=== PATIENT | male | born 1950 | race Caucasian/White ===

== ENCOUNTER 2018-12-08 09:48 | Day surgery (SDC) | payer MEDICARE ==
[2018-12-07 13:24] LABS: BASOPHILS # (AUTO) 0.1 X10'3 (0-0.2); BASOPHILS % (AUTO) 1.4 % (0-1); EOSINOPHILS # (AUTO) 0.5 X10'3 (0-0.9); EOSINOPHILS % (AUTO) 7.3 % (0-6); HEMATOCRIT 39.1 % (42.0-52.0); HEMOGLOBIN 13.1 g/dl (14.0-17.9); LYMPHOCYTES # (AUTO) 1.2 X10'3 (1.1-4.8); LYMPHOCYTES % (AUTO) 16.8 % (21-51); MEAN CORPUSCULAR HEMOGLOBIN 28.5 PG (27.0-31.0); MEAN CORPUSCULAR HGB CONC 33.4 g/dL (33.0-36.5); MEAN CORPUSCULAR VOLUME 85.4 FL (78-98); MEAN PLATELET VOLUME 7.8 FL (7.4-10.4); MONOCYTES # (AUTO) 0.5 X10'3 (0-0.9); MONOCYTES % (AUTO) 7.6 % (2-12); NEUTROPHILS # (AUTO) 4.6 X10'3 (1.8-7.7); NEUTROPHILS % (AUTO) 66.9 % (42-75); PLATELET COUNT 248 X10'3 (140-440); RED BLOOD COUNT 4.58 X10'6 (4.70-6.10); RED CELL DISTRIBUTION WIDTH 12.8 % (11.5-14.5); WHITE BLOOD COUNT 6.9 X10'3 (4.5-11.0)
[2018-12-07 13:38] LABS: ALBUMIN 3.9 G/DL (3.4-5.0); ANION GAP 5 (8-16); BLOOD UREA NITROGEN 21 MG/DL (7-18); BUN/CREATININE RATIO 22.1 (5.4-32.0); CALCIUM 9.1 MG/DL (8.5-10.1); CHLORIDE 100 MMOL/L (99-107); CREATININE 0.95 MG/DL (0.60-1.10); GLUCOSE 107 MG/DL (70-104); POTASSIUM 3.9 MMOL/L (3.5-5.1); SODIUM 135 MMOL/L (135-145); TOTAL CARBON DIOXIDE 29.7 MMOL/L (24-32); eGFR 79 ML/MIN
[2018-12-07 13:45] LABS: PARTIAL THROMBOPLASTIN TIME 30 SECONDS (22-32)
[~2018-12-08] VITALS: Ht 182.9 cm; Wt 98.2 kg
[2018-12-08] VITALS (9 sets, daily range): BP systolic 96–137; BP diastolic 61–80
[~2018-12-08 09:48] MED LIST: ASPI-1264 PO; CLON-528 PO; FISH12002 PO; HYDR1TAB PO; LISI-230 PO; METO25TA6 PO; ROSU10TA2 PO
[2018-12-08] MEDS ORDERED: normal saline 1,000 ML IV SCH ×2 (10:10→15:20)
[2018-12-08] MEDS ORDERED: diphenhydrAMINE 25mg capsule PO PRN (10:10)
[2018-12-08] MEDS ORDERED: LORazepam 0.5 MG tablet PO PRN (10:10)
[2018-12-08] MEDS ORDERED: HYDR-4353 PO (10:50)
[2018-12-08] MEDS ORDERED: BENADRYL (10:50)
[2018-12-08] MEDS ORDERED: ROSU40TA PO (10:50)
[2018-12-08] MEDS ORDERED: heparin 1,000 UNITS/NS 500ml 500 ML ONE (13:11)
[2018-12-08] MEDS ORDERED: iohexol 350 MG/ML 50ML vial IV ONE (13:11)
[2018-12-08] MEDS ORDERED: iohexol 350 MG/1 ML 200ml bottle ONE (13:11)
[2018-12-08] MEDS ORDERED: LIDOcaine 1% (10mg/ml)w/preservative injection 20ml MDV ONE (13:11)
[2018-12-08] MEDS ORDERED: heparin 1,000unit/ml 10ml vial 10 ML ONE (13:11)
[2018-12-08] MEDS ORDERED: nitroGLYCERIN-Tridil 50MG/D5W 250 ML IV ONE (13:11)
[2018-12-08] MEDS ORDERED: midazolam 2 mg/2 ml injection ONE (13:26)
[2018-12-08] MEDS ORDERED: fentaNYL/PF 50MCG/1 ML 2ML syringe ONE (13:26)
[2018-12-08] MEDS ORDERED: aspirin 81mg tab.chew PO ONE (15:20)
[2018-12-08 15:21] LABS: ISTAT HGB ART 11.2 g/dl (14.0-18.0); ISTAT Hct ART 33 %PCV (42-52); ISTAT O2 SATURATION ARTERIAL 99 % (95-98); ISTAT SOURCE ART
[2018-12-08 15:21] LABS: ISTAT Hct MIX 33 %PCV (42-52); ISTAT O2 SATURATION MIX VENOUS 71 % (60-80); ISTAT SOURCE MIX
[2018-12-08] MEDS ORDERED: HYDROcodone/acetaminophen 10/325mg tab PO PRN (17:35)
== END 2018-12-08 19:25 | disposition home or self-care (01) ==
LOC: SSTAY O 09:48
PROVIDERS: ATTEND Internal Medicine Cardiovascular Disease
DX: I25.10 Atherosclerotic heart disease of native coronary artery without angina pectoris (principal); I25.82 Chronic total occlusion of coronary artery; I10 Essential (primary) hypertension; E78.5 Hyperlipidemia, unspecified; Z79.899 Other long term (current) drug therapy; Z79.82 Long term (current) use of aspirin; Z98.890 Other specified postprocedural states; Z95.1 Presence of aortocoronary bypass graft; R06.02 Shortness of breath; R07.9 Chest pain, unspecified
CPT/HCPCS: 36415; 80048; 82803; 85014; 85025; 85610; 85730; 93005; 93461; 99152; 99153; A6257; C1760; C1769; J1644; J2001; J2250; J3010; J7030; Q0163; Q9967; 93460; J3490

== ENCOUNTER 2019-11-30 08:45 | Day surgery (SDC) | payer MEDICARE ==
[2019-11-29 16:02] LABS: BASOPHILS # (AUTO) 0.1 X10'3 (0-0.2); EOSINOPHILS # (AUTO) 0.5 X10'3 (0-0.9); EOSINOPHILS % (AUTO) 7.7 % (0-6); HEMOGLOBIN 13.4 g/dl (14.0-17.9); LYMPHOCYTES # (AUTO) 1.5 X10'3 (1.1-4.8); LYMPHOCYTES % (AUTO) 24.7 % (21-51); MEAN CORPUSCULAR HEMOGLOBIN 29.2 PG (27.0-31.0); MEAN CORPUSCULAR HGB CONC 33.5 g/dL (33.0-36.5); MEAN CORPUSCULAR VOLUME 87.2 FL (78-98); MONOCYTES # (AUTO) 0.5 X10'3 (0-0.9); MONOCYTES % (AUTO) 9.1 % (2-12); NEUTROPHILS # (AUTO) 3.5 X10'3 (1.8-7.7); NEUTROPHILS % (AUTO) 57.5 % (42-75); PLATELET COUNT 208 X10'3 (140-440); RED BLOOD COUNT 4.58 X10'6 (4.70-6.10); RED CELL DISTRIBUTION WIDTH 13.4 % (11.5-14.5)
[2019-11-29 16:11] LABS: ALBUMIN 3.8 G/DL (3.4-5.0); ANION GAP 6 (8-16); BLOOD UREA NITROGEN 22 MG/DL (7-18); BUN/CREATININE RATIO 23.7 (5.4-32.0); CALCIUM 9.7 MG/DL (8.5-10.1); CHLORIDE 99 MMOL/L (99-107); CREATININE 0.93 MG/DL (0.60-1.10); GLUCOSE 103 MG/DL (70-104); POTASSIUM 3.6 MMOL/L (3.5-5.1); SODIUM 135 MMOL/L (135-145); TOTAL CARBON DIOXIDE 30.5 MMOL/L (24-32); eGFR 80 ML/MIN
[2019-11-29 16:20] LABS: PARTIAL THROMBOPLASTIN TIME 29 SECONDS (22-32)
[2019-11-30] VITALS (14 sets, daily range): BP systolic 107–155; BP diastolic 55–97
[~2019-11-30] VITALS: Ht 182.9 cm; Wt 101.3 kg
[~2019-11-30 08:45] MED LIST changes: +BENADRYL; -CLON-528 PO; -FISH12002 PO; +HYDR-4353 PO; -HYDR1TAB PO; -ROSU10TA2 PO; +ROSU40TA PO
[2019-11-30] MEDS ORDERED: normal saline 1,000 ML IV SCH ×2 (09:05→09:30)
[2019-11-30] MEDS ORDERED: OMEG1CAP2 PO (09:15)
[2019-11-30] MEDS ORDERED: diphenhydrAMINE 25mg capsule PO PRN (09:30)
[2019-11-30] MEDS ORDERED: LORazepam 0.5 MG tablet PO PRN (09:30)
[2019-11-30] MEDS ORDERED: nitroGLYCERIN-Tridil 50MG/D5W 250 ML IV ONE (11:02)
[2019-11-30] MEDS ORDERED: iohexol 350MG/ML 100ml bottle IV ONE (11:03)
[2019-11-30] MEDS ORDERED: midazolam 2 mg/2 ml injection ONE (11:03)
[2019-11-30] MEDS ORDERED: iohexol 350 MG/ML 50ML vial IV ONE (11:03)
[2019-11-30] MEDS ORDERED: LIDOcaine 1% (10mg/ml)w/preservative injection 20ml MDV ONE ×2 (11:03→15:08)
[2019-11-30] MEDS ORDERED: heparin 1,000unit/ml 10ml vial 10 ML ONE (11:03)
[2019-11-30] MEDS ORDERED: fentaNYL/PF 50MCG/1 ML 2ML syringe ONE (11:03)
[2019-11-30] MEDS ORDERED: iohexol 350 MG/1 ML 200ml bottle ONE (11:50)
[2019-11-30] MEDS ORDERED: heparin 25,000 UNIT/250ml bag 250 ML IV ONE (12:14)
[2019-11-30] MEDS ORDERED: clopidogrel 300mg tablet ONE (12:56)
[2019-11-30] MEDS ORDERED: HYDROcodone/acetaminophen 10/325mg tab PO PRN ×3 (13:45→15:50)
[2019-11-30] MEDS ORDERED: HYDROcodone/acetaminophen 5mg/325mg tablet PO PRN (13:45)
[2019-11-30] MEDS ORDERED: acetaminophen 325mg tablet PO PRN ×2 (13:45→15:50)
[2019-11-30] MEDS ORDERED: aspirin 325mg tablet PO ONE (15:45)
[2019-11-30] MEDS ORDERED: OXAZEpam 15mg capsule PO PRN (15:50)
[2019-11-30] MEDS ORDERED: magnesium hydroxide 30ml (MOM) UD suspension PO PRN (15:50)
[2019-11-30] MEDS ORDERED: cyclobenzaprine 10mg tablet PO PRN (15:50)
[2019-11-30] MEDS: morphine 2 MG/ML inj. syringe IV PRN ×2 (15:52→17:35)
[2019-11-30] MEDS ORDERED: docusate sod 100mg capsule PO SCH (20:00)
[2019-12-01] MEDS ORDERED: clopidogrel 75mg tablet PO SCH (08:00)
[2019-12-01] MEDS ORDERED: aspirin 325mg tablet PO SCH (08:30)
== END 2019-11-30 20:10 | disposition home or self-care (01) ==
LOC: SSTAY O 08:45
PROVIDERS: ATTEND Internal Medicine Cardiovascular Disease
DX: R94.39 Abnormal result of other cardiovascular function study (principal); I25.119 Atherosclerotic heart disease of native coronary artery with unspecified angina pectoris; I25.82 Chronic total occlusion of coronary artery; I35.0 Nonrheumatic aortic (valve) stenosis; I10 Essential (primary) hypertension; E78.5 Hyperlipidemia, unspecified; Z95.1 Presence of aortocoronary bypass graft; Z79.899 Other long term (current) drug therapy; Z79.82 Long term (current) use of aspirin; Z98.890 Other specified postprocedural states; Z79.01 Long term (current) use of anticoagulants; Z87.891 Personal history of nicotine dependence; Z82.49 Family history of ischemic heart disease and other diseases of the circulatory system
CPT/HCPCS: 36415; 80048; 85025; 85347; 85610; 85730; 93005; 93459; 99152; 99153; C1725; C1769; C1874; C1892; C9600; J1644; J2001; J2250; J2270; J3010; J7030; J7040; Q0163; Q9967; 76937; A4620; A5120; A6258; A6449; C1751; C1760; J3490

== ENCOUNTER 2020-04-20 17:54 | Emergency (ER) | payer MEDICARE ==
[~2020-04-20] VITALS: Ht 182.9 cm; Wt 100.8 kg
[~2020-04-20 17:54] MED LIST changes: -BENADRYL; +OMEG1CAP2 PO; -ROSU40TA PO
[2020-04-20] MEDS ORDERED: cyclobenzaprine 10mg tablet PO ONE (19:50)
[2020-04-20] MEDS ORDERED: acetaminophen 325mg tablet PO ONE (19:50)
[2020-04-20 20:38] LABS: BASOPHILS % (AUTO) 0.5 % (0-1); EOSINOPHILS # (AUTO) 0.2 X10'3 (0-0.9); EOSINOPHILS % (AUTO) 2.5 % (0-6); HEMATOCRIT 38.2 % (42.0-52.0); HEMOGLOBIN 13.2 g/dl (14.0-17.9); LYMPHOCYTES # (AUTO) 1.2 X10'3 (1.1-4.8); LYMPHOCYTES % (AUTO) 17.1 % (21-51); MEAN CORPUSCULAR HEMOGLOBIN 29.6 PG (27.0-31.0); MEAN CORPUSCULAR HGB CONC 34.6 g/dL (33.0-36.5); MEAN CORPUSCULAR VOLUME 85.6 FL (78-98); MEAN PLATELET VOLUME 7.5 FL (7.4-10.4); MONOCYTES # (AUTO) 0.7 X10'3 (0-0.9); MONOCYTES % (AUTO) 9.3 % (2-12); NEUTROPHILS # (AUTO) 4.9 X10'3 (1.8-7.7); NEUTROPHILS % (AUTO) 70.6 % (42-75); PLATELET COUNT 212 X10'3 (140-440); RED BLOOD COUNT 4.46 X10'6 (4.70-6.10); RED CELL DISTRIBUTION WIDTH 13.1 % (11.5-14.5)
[2020-04-20 20:51] LABS: ALANINE AMINOTRANSFERASE 33 U/L (12-78); ALBUMIN 3.8 G/DL (3.4-5.0); ALBUMIN/GLOBULIN RATIO 1.2 (1.1-1.5); ALKALINE PHOSPHATASE 48 IU/L (46-116); ANION GAP 5 (8-16); ASPARTATE AMINO TRANSFERASE 22 U/L (10-37); BILIRUBIN,TOTAL 0.6 MG/DL (0.1-1.0); BLOOD UREA NITROGEN 13 MG/DL (7-18); BUN/CREATININE RATIO 15.9 (5.4-32.0); CALCIUM 9.4 MG/DL (8.5-10.1); CHLORIDE 88 MMOL/L (99-107); CREATININE 0.82 MG/DL (0.60-1.10); GLUCOSE 111 MG/DL (70-104); POTASSIUM 3.8 MMOL/L (3.5-5.1); SODIUM 123 MMOL/L (135-145); TOTAL CARBON DIOXIDE 30.5 MMOL/L (24-32); eGFR > 90 ML/MIN
[2020-04-20 20:55] LABS: MAGNESIUM 1.8 MG/DL (1.5-2.4); TROPONIN I < 0.04 NG/ML (0.0-0.05)
[2020-04-20] MEDS ORDERED: CYCL-1 PO (21:17)
[2020-04-20] MEDS ORDERED: ROPI0.5T4 PO (21:17)
[2020-04-20 21:30] LABS: CLARITY,URINE CLEAR (Clear); COLOR,URINE YELLOW (Yellow); GLUCOSE, URINE NEGATIVE (Neg); KETONES,URINE NEGATIVE (Neg); LEUKOCYTE ESTERASE ,URINE NEGATIVE (Neg); NITRITES, URINE NEGATIVE (Neg); OCCULT BLOOD,URINE NEGATIVE (Neg); PROTEIN,URINE NEGATIVE (Neg); UA COLLECTION TYPE CLN CATCH MIDSTREAM; UROBILINOGEN,URINE 0.2 E.U/dL (0.2-1.0)
[2020-04-20 21:37] VITALS: BP 143/72
== END 2020-04-20 21:39 | disposition home or self-care (01) ==
LOC: ER 17:55
DX: G25.81 Restless legs syndrome (principal); E87.1 Hypo-osmolality and hyponatremia; Z95.1 Presence of aortocoronary bypass graft; Z79.82 Long term (current) use of aspirin; Z79.899 Other long term (current) drug therapy
CPT/HCPCS: 36415; 80053; 81003; 83735; 84484; 85025; 93005; 99284

== ENCOUNTER 2020-10-31 05:59 | Day surgery (SDC) | payer MEDICARE ==
[2020-10-30 14:12] LABS: BASOPHILS % (AUTO) 0.7 % (0-1); EOSINOPHILS # (AUTO) 0.3 X10'3 (0-0.9); EOSINOPHILS % (AUTO) 3.8 % (0-6); HEMATOCRIT 39.9 % (42.0-52.0); HEMOGLOBIN 13.3 g/dl (14.0-17.9); LYMPHOCYTES # (AUTO) 1.3 X10'3 (1.1-4.8); LYMPHOCYTES % (AUTO) 19.4 % (21-51); MEAN CORPUSCULAR HEMOGLOBIN 28.9 PG (27.0-31.0); MEAN CORPUSCULAR HGB CONC 33.4 g/dL (33.0-36.5); MEAN CORPUSCULAR VOLUME 86.6 FL (78-98); MEAN PLATELET VOLUME 7.4 FL (7.4-10.4); MONOCYTES # (AUTO) 0.5 X10'3 (0-0.9); MONOCYTES % (AUTO) 7.4 % (2-12); NEUTROPHILS # (AUTO) 4.6 X10'3 (1.8-7.7); NEUTROPHILS % (AUTO) 68.7 % (42-75); PLATELET COUNT 217 X10'3 (140-440); RED BLOOD COUNT 4.61 X10'6 (4.70-6.10); RED CELL DISTRIBUTION WIDTH 12.8 % (11.5-14.5); WHITE BLOOD COUNT 6.7 X10'3 (4.5-11.0)
[2020-10-30 14:22] LABS: ALBUMIN 3.9 G/DL (3.4-5.0); ANION GAP 5 (8-16); BLOOD UREA NITROGEN 21 MG/DL (7-18); CALCIUM 9.3 MG/DL (8.5-10.1); CHLORIDE 99 MMOL/L (99-107); CREATININE 0.84 MG/DL (0.60-1.10); GLUCOSE 119 MG/DL (70-104); POTASSIUM 3.9 MMOL/L (3.5-5.1); SODIUM 135 MMOL/L (135-145); TOTAL CARBON DIOXIDE 30.8 MMOL/L (24-32); eGFR 90 ML/MIN
[2020-10-30 14:26] LABS: PARTIAL THROMBOPLASTIN TIME 30 SECONDS (22-32)
[~2020-10-31] VITALS: Ht 182.9 cm; Wt 101.8 kg
[2020-10-31] VITALS (12 sets, daily range): BP systolic 89–137; BP diastolic 57–77
[~2020-10-31 05:59] MED LIST changes: +CYCL-1 PO; +LOP25T PO; -METO25TA6 PO; +ROPI0.5T4 PO
[2020-10-31] MEDS ORDERED: LORazepam 0.5 MG tablet PO PRN (06:25)
[2020-10-31] MEDS ORDERED: LIDOcaine/PRILOcaine 5gm cream TP ONE (06:25)
[2020-10-31] MEDS ORDERED: diphenhydrAMINE 25mg capsule PO PRN (06:25)
[2020-10-31] MEDS ORDERED: CLOP75TA15 PO (06:38)
[2020-10-31] MEDS ORDERED: LISI-643 PO (06:38)
[2020-10-31] MEDS ORDERED: ISOS60TA71 PO (06:38)
[2020-10-31] MEDS ORDERED: METO25TA6 PO (06:38)
[2020-10-31] MEDS ORDERED: GABA600T13 PO (06:38)
[2020-10-31] MEDS ORDERED: nitroGLYCERIN-Tridil 50MG/D5W 250 ML IV ONE (07:20)
[2020-10-31] MEDS ORDERED: LIDOcaine 1% (10mg/ml)w/preservative injection 20ml MDV ONE (07:20)
[2020-10-31] MEDS ORDERED: iohexol 350 MG/ML 50ML vial IV ONE ×3 (07:20→08:54)
[2020-10-31] MEDS ORDERED: iohexol 350MG/ML 100ml bottle IV ONE (07:20)
[2020-10-31] MEDS ORDERED: fentaNYL/PF 50MCG/1 ML 2ML syringe ONE (07:20)
[2020-10-31] MEDS ORDERED: heparin 1,000unit/ml 10ml vial 10 ML ONE (07:20)
[2020-10-31] MEDS ORDERED: midazolam 1 mg/ML 2ml injection ONE (07:20)
[2020-10-31] MEDS: normal saline 1,000 ML IV SCH ×2 (07:26→10:42)
--- NOTE | 2020-10-31 10:00 | NUR ---
Pt in room, iv fluids infusing as ordered. Fem stop in place. Pt denies pain, denies cp. Will continue to monitor.
[2020-10-31] MEDS ORDERED: HYDROcodone/acetaminophen 10/325mg tab PO PRN (10:20)
[2020-10-31] MEDS ORDERED: normal saline 1000ml 1,000 ML IV SCH (10:20)
[2020-10-31] MEDS ORDERED: HYDROcodone/acetaminophen 5mg/325mg tablet PO PRN (10:20)
--- NOTE | 2020-10-31 11:00 | NUR ---
Pt ate 100% of breakfast tray. 350ml oral fluid intake. Pt denies pain at site. Pt denies cp. VS stable as charted will continue to monitor pt.
--- NOTE | 2020-10-31 12:30 | NUR ---
pt voided 600ml yellow, clear
--- NOTE | 2020-10-31 14:07 | NUR ---
Pt voided 550ml yellow clear
--- NOTE | 2020-10-31 15:30 | NUR ---
Femstop off, pt site stable, drsg CD&I, no s/s of bleeding
== END 2020-10-31 17:00 | disposition home or self-care (01) ==
LOC: SSTAY O 05:59
PROVIDERS: ATTEND Internal Medicine Cardiovascular Disease
DX: R94.39 Abnormal result of other cardiovascular function study (principal); R06.02 Shortness of breath; T82.857A Stenosis of other cardiac prosthetic devices, implants and grafts, initial encounter; I25.718 Atherosclerosis of autologous vein coronary artery bypass graft(s) with other forms of angina pectoris; I25.82 Chronic total occlusion of coronary artery; I35.0 Nonrheumatic aortic (valve) stenosis; I10 Essential (primary) hypertension; E78.5 Hyperlipidemia, unspecified; Z98.890 Other specified postprocedural states; Z87.891 Personal history of nicotine dependence; Z79.82 Long term (current) use of aspirin; Z79.899 Other long term (current) drug therapy; Z79.01 Long term (current) use of anticoagulants; Z80.9 Family history of malignant neoplasm, unspecified; Z82.49 Family history of ischemic heart disease and other diseases of the circulatory system; Y83.8 Other surgical procedures as the cause of abnormal reaction of the patient, or of later complication, without mention of misadventure at the time of the procedure; Y92.89 Other specified places as the place of occurrence of the external cause
CPT/HCPCS: 36415; 76937; 80048; 85025; 85610; 85730; 93005; 93461; 99152; 99153; C1769; C1894; J1644; J2001; J2250; J3010; J7030; Q0163; Q9967; 93459; A4620; A6258; C1751; J3490

== ENCOUNTER 2020-11-14 10:50 | Outpatient (CLI) | payer MEDICARE ==
[~2020-11-14] VITALS: Ht 182.9 cm; Wt 102.1 kg
[~2020-11-14 10:50] MED LIST changes: +CLOP75TA15 PO; -CYCL-1 PO; +GABA600T13 PO; -HYDR-4353 PO; +ISOS60TA71 PO; -LISI-230 PO; +LISI-643 PO; -LOP25T PO; +METO25TA6 PO; -ROPI0.5T4 PO
[2020-11-14] MEDS ORDERED: IODIXANOL 320 MG/ML INFUS..BTL 100ML IV ONE (11:14)
[2020-11-14] MEDS ORDERED: IODIXANOL 320 MG/ML INFUS..BTL 50ML IV ONE (11:14)
[2020-11-14 11:28] LABS: BASOPHILS # (AUTO) 0.1 X10'3 (0-0.2); BASOPHILS % (AUTO) 0.8 % (0-1); EOSINOPHILS # (AUTO) 0.3 X10'3 (0-0.9); EOSINOPHILS % (AUTO) 5.2 % (0-6); HEMATOCRIT 39.4 % (42.0-52.0); HEMOGLOBIN 13.4 g/dl (14.0-17.9); LYMPHOCYTES # (AUTO) 1.4 X10'3 (1.1-4.8); LYMPHOCYTES % (AUTO) 21.2 % (21-51); MEAN CORPUSCULAR HEMOGLOBIN 30.1 PG (27.0-31.0); MEAN CORPUSCULAR HGB CONC 34.1 g/dL (33.0-36.5); MEAN CORPUSCULAR VOLUME 88.2 FL (78-98); MEAN PLATELET VOLUME 7.3 FL (7.4-10.4); MONOCYTES # (AUTO) 0.7 X10'3 (0-0.9); MONOCYTES % (AUTO) 10.2 % (2-12); NEUTROPHILS # (AUTO) 4.1 X10'3 (1.8-7.7); NEUTROPHILS % (AUTO) 62.6 % (42-75); PLATELET COUNT 210 X10'3 (140-440); RED BLOOD COUNT 4.46 X10'6 (4.70-6.10); RED CELL DISTRIBUTION WIDTH 13.4 % (11.5-14.5); WHITE BLOOD COUNT 6.5 X10'3 (4.5-11.0)
[2020-11-14 11:40] LABS: PARTIAL THROMBOPLASTIN TIME 29 SECONDS (22-32)
[2020-11-14 11:41] LABS: ALANINE AMINOTRANSFERASE 34 U/L (12-78); ALBUMIN 3.8 G/DL (3.4-5.0); ALBUMIN/GLOBULIN RATIO 1.1 (1.1-1.5); ALKALINE PHOSPHATASE 70 IU/L (46-116); ANION GAP 9 (8-16); ASPARTATE AMINO TRANSFERASE 25 U/L (10-37); BILIRUBIN,TOTAL 0.3 MG/DL (0.1-1.0); BLOOD UREA NITROGEN 15 MG/DL (7-18); CALCIUM 8.8 MG/DL (8.5-10.1); CHLORIDE 102 MMOL/L (99-107); CREATININE 0.94 MG/DL (0.60-1.10); GLUCOSE 117 MG/DL (70-104); POTASSIUM 4.1 MMOL/L (3.5-5.1); SODIUM 139 MMOL/L (135-145); TOTAL CARBON DIOXIDE 28.2 MMOL/L (24-32); TOTAL PROTEIN 7.3 G/DL (6.4-8.2); eGFR 79 ML/MIN
[2020-11-14 13:06] LABS: ABG BASE EXCESS 0.3 mmol/L (-2.0-2.0); ABG HCO3 24.8 mmol/L (22.0-26.0); ABG OXYGEN SATURATION 93.9 % (94-97); ABG PCO2 (T) 39.5 mmHg (35.0-48.0); ABG PO2 (T) 69.2 mmHg (75.0-100.0); ALLEN'S TEST Yes; FCOHb 0.3 % (0.0-3.9); FMetHb 0.3 % (0.0-1.5); FO2Hb 93.3 % (94-97); TOTAL HEMOGLOBIN 13.8 G/dl (14.0-18.0)
[2020-11-14] MEDS ORDERED: albuterol 2.5 MG/3 ML nebule NEB PRN (13:15)
== END 2020-11-14 23:59 | disposition home or self-care (01) ==
LOC: 64 CT 10:50
PROVIDERS: ATTEND Internal Medicine Cardiovascular Disease
DX: I70.1 Atherosclerosis of renal artery (principal); K40.90 Unilateral inguinal hernia, without obstruction or gangrene, not specified as recurrent; M48.061 Spinal stenosis, lumbar region without neurogenic claudication; R94.2 Abnormal results of pulmonary function studies; R09.02 Hypoxemia
CPT/HCPCS: 36415; 36600; 71046; 71275; 74174; 80053; 82803; 85018; 85025; 85610; 85730; 94060; 94727; 94729; 94760; Q9967; U0003

== ENCOUNTER 2022-12-04 06:03 | Day surgery (SDC) | payer MEDICARE ==
[2022-12-03 12:11] LABS: BASOPHILS # (AUTO) 0.1 X10'3 (0-0.2); BASOPHILS % (AUTO) 0.9 % (0-1); EOSINOPHILS # (AUTO) 0.3 X10'3 (0-0.9); EOSINOPHILS % (AUTO) 6.1 % (0-6); HEMATOCRIT 38.2 % (42.0-52.0); HEMOGLOBIN 12.7 g/dl (14.0-17.9); LYMPHOCYTES % (AUTO) 17.8 % (21-51); MEAN CORPUSCULAR HEMOGLOBIN 28.8 PG (27.0-31.0); MEAN CORPUSCULAR HGB CONC 33.4 g/dL (33.0-36.5); MEAN CORPUSCULAR VOLUME 86.3 FL (78-98); MEAN PLATELET VOLUME 7.3 FL (7.4-10.4); MONOCYTES # (AUTO) 0.5 X10'3 (0-0.9); MONOCYTES % (AUTO) 9.9 % (2-12); NEUTROPHILS # (AUTO) 3.6 X10'3 (1.8-7.7); NEUTROPHILS % (AUTO) 65.3 % (42-75); PLATELET COUNT 177 X10'3 (140-440); RED BLOOD COUNT 4.43 X10'6 (4.70-6.10); RED CELL DISTRIBUTION WIDTH 13.9 % (11.5-14.5); WHITE BLOOD COUNT 5.5 X10'3 (4.5-11.0)
[2022-12-03 12:23] LABS: ALBUMIN 4.1 G/DL (3.4-5.0); ANION GAP 4 (8-16); BLOOD UREA NITROGEN 17 MG/DL (7-18); BUN/CREATININE RATIO 20.2 (10.0-20.0); CALCIUM 9.2 MG/DL (8.5-10.1); CHLORIDE 100 MMOL/L (99-107); CREATININE 0.84 MG/DL (0.60-1.10); GLUCOSE 100 MG/DL (70-104); POTASSIUM 4.1 MMOL/L (3.5-5.1); SODIUM 137 MMOL/L (135-145); TOTAL CARBON DIOXIDE 32.6 MMOL/L (24-32); eGFR 90 ML/MIN
[2022-12-03 12:26] LABS: APTT 30 SECONDS (22-32)
[2022-12-04] VITALS (11 sets, daily range): BP systolic 101–155; BP diastolic 51–93
[~2022-12-04] VITALS: Ht 182.9 cm; Wt 97.1 kg
[~2022-12-04 06:03] MED LIST changes: +CHOL20004 PO; +FLAX1CAP4 PO; +KRIL1CAP40 PO; +LACT1CAP65 PO; -LISI-643 PO; +MULT-384 PO; +OMEG-133 PO; -OMEG1CAP2 PO; +PYRI200T9 PO; +UBID1CAP54 PO
[2022-12-04] MEDS ORDERED: LOSA25TA96 PO (06:52)
[2022-12-04] MEDS ORDERED: NITR0.4T51 SL (06:52)
[2022-12-04] MEDS ORDERED: fentaNYL/PF 50MCG/1 ML 2ML syringe ONE (07:05)
[2022-12-04] MEDS ORDERED: heparin 1,000unit/ml 10ml vial 0 ML ONE (07:05)
[2022-12-04] MEDS ORDERED: midazolam 1 mg/ML 2ml injection ONE (07:05)
[2022-12-04] MEDS ORDERED: LIDOcaine 1% (10mg/ml) 2ml vial ONE (07:05)
[2022-12-04] MEDS ORDERED: iohexol 350MG/ML 100ml bottle IV ONE ×4 (07:05→09:05)
[2022-12-04] MEDS ORDERED: verapamil 2.5 mg/ml inj IV ONE (07:05)
[2022-12-04] MEDS ORDERED: nitroGLYCERIN-Tridil 50MG/D5W 250 ML IV ONE (07:05)
[2022-12-04] MEDS ORDERED: diphenhydrAMINE 25mg capsule PO PRN (07:10)
[2022-12-04] MEDS ORDERED: normal saline 1,000 ML IV SCH (07:10)
[2022-12-04] MEDS ORDERED: LORazepam 0.5 MG tablet PO PRN (07:10)
[2022-12-04] MEDS ORDERED: LIDOcaine 1% 30ml preserv. free vial ONE (07:24)
[2022-12-04] MEDS ORDERED: iohexol 350 MG/ML 50ML vial IV ONE (08:05)
[2022-12-04] MEDS ORDERED: heparin 1,000unit/ml 10ml vial 10 ML ONE (08:29)
[2022-12-04] MEDS ORDERED: heparin 1,000 UNITS/NS 500ml 500 ML ONE (09:06)
[2022-12-04] MEDS ORDERED: HYDROcodone/acetaminophen 10/325mg tab PO PRN (10:45)
[2022-12-04] MEDS ORDERED: HYDROcodone/acetaminophen 5mg/325mg tablet PO PRN (10:45)
[2022-12-08 06:49] LABS: ISTAT Hct MIX 33 %PCV (42-52); ISTAT O2 SATURATION MIX VENOUS 73 % (60-80); ISTAT SOURCE BLNK
[2022-12-08 06:49] LABS: ISTAT HGB ART 11.9 g/dl (14.0-17.9); ISTAT Hct ART 35 %PCV (42-52); ISTAT O2 SATURATION ARTERIAL 98 % (95-98); ISTAT SOURCE BLNK
== END 2022-12-04 14:55 | disposition home or self-care (01) ==
LOC: SSTAY O 06:03
PROVIDERS: ATTEND Internal Medicine Cardiovascular Disease
DX: I25.810 Atherosclerosis of coronary artery bypass graft(s) without angina pectoris (principal); I10 Essential (primary) hypertension; E78.5 Hyperlipidemia, unspecified; Z95.5 Presence of coronary angioplasty implant and graft; Z79.899 Other long term (current) drug therapy; Z79.01 Long term (current) use of anticoagulants; Z98.890 Other specified postprocedural states; Z87.891 Personal history of nicotine dependence; Z95.2 Presence of prosthetic heart valve; Z82.49 Family history of ischemic heart disease and other diseases of the circulatory system; Z80.9 Family history of malignant neoplasm, unspecified
CPT/HCPCS: 36415; 76937; 80048; 82803; 85014; 85025; 85610; 85730; 93461; 93567; 99152; 99153; J1644; J2250; J3010; J3490; J7030; Q0163; Q9967; A6258; A6449; C1725; C1751; C1760

== ENCOUNTER 2023-07-09 14:27 | Inpatient (IN) | payer MEDICARE ==
[~2023-07-09] VITALS: Ht 182.9 cm; Wt 100.0 kg
[~2023-07-09 14:27] MED LIST changes: -CHOL20004 PO; +CLOP-32 PO; -FLAX1CAP4 PO; -KRIL1CAP40 PO; -LACT1CAP65 PO; +LOP12.5T PO; +LOSA-415 PO; -MULT-384 PO; +NITR0.4T51 SL; -OMEG-133 PO; +OMEG100037 PO; -PYRI200T9 PO; -UBID1CAP54 PO
[2023-07-09 15:15] LABS: BASOPHILS % (AUTO) 0.4 % (0-1); EOSINOPHILS # (AUTO) 0.2 X10'3 (0-0.9); EOSINOPHILS % (AUTO) 2.5 % (0-6); HEMATOCRIT 37.5 % (42.0-52.0); HEMOGLOBIN 12.7 g/dl (14.0-17.9); LYMPHOCYTES # (AUTO) 0.8 X10'3 (1.1-4.8); LYMPHOCYTES % (AUTO) 10.3 % (21-51); MEAN CORPUSCULAR HEMOGLOBIN 29.4 PG (27.0-31.0); MEAN CORPUSCULAR HGB CONC 33.8 g/dL (33.0-36.5); MEAN CORPUSCULAR VOLUME 87.1 FL (78-98); MEAN PLATELET VOLUME 7.5 FL (7.4-10.4); MONOCYTES # (AUTO) 0.8 X10'3 (0-0.9); MONOCYTES % (AUTO) 9.9 % (2-12); NEUTROPHILS # (AUTO) 5.9 X10'3 (1.8-7.7); NEUTROPHILS % (AUTO) 76.9 % (42-75); PLATELET COUNT 216 X10'3 (140-440); RED BLOOD COUNT 4.31 X10'6 (4.70-6.10); RED CELL DISTRIBUTION WIDTH 13.1 % (11.5-14.5); WHITE BLOOD COUNT 7.7 X10'3 (4.5-11.0)
[2023-07-09 15:25] LABS: ALANINE AMINOTRANSFERASE 33 U/L (12-78); ALBUMIN/GLOBULIN RATIO 1.1 (1.1-1.5); ALKALINE PHOSPHATASE 67 IU/L (46-116); ANION GAP 6 (8-16); ASPARTATE AMINO TRANSFERASE 31 U/L (10-37); BILIRUBIN,TOTAL 0.4 MG/DL (0.1-1.0); BLOOD UREA NITROGEN 13 MG/DL (7-18); BUN/CREATININE RATIO 15.5 (10.0-20.0); CALCIUM 9.4 MG/DL (8.5-10.1); CHLORIDE 92 MMOL/L (99-107); CREATININE 0.84 MG/DL (0.60-1.10); GLUCOSE 109 MG/DL (70-104); POTASSIUM 4.1 MMOL/L (3.5-5.1); SODIUM 128 MMOL/L (135-145); TOTAL CARBON DIOXIDE 29.7 MMOL/L (24-32); TOTAL PROTEIN 7.8 G/DL (6.4-8.2); eCRCL 85 ML/MIN; eGFR 89 ML/MIN
[2023-07-09 15:33] LABS: PRO BRAIN NATRIURETIC PEPTIDE 1524 PG/ML (0-125)
[2023-07-09] MEDS ORDERED: magnesium 4gm in 100ml NS 100 ML IV PRN (16:50)
[2023-07-09] MEDS ORDERED: acetaminophen 325mg tablet PO PRN ×4 (16:50→21:15)
[2023-07-09] MEDS ORDERED: potassium Cl 40MEQ/1/2NS 520ml 520 ML IV PRN (16:50)
[2023-07-09] MEDS ORDERED: mag hydrox/Alum hydrox/simeth 30ml oral suspension PO PRN ×2 (16:50→21:15)
[2023-07-09] MEDS ORDERED: potassium Cl 20 mEq SR tablet PO PRN ×2 (16:50)
[2023-07-09] MEDS ORDERED: heparin 10,000 units/1 ML INJ IV ONE ×2 (16:50→18:05)
[2023-07-09] MEDS ORDERED: nitroGLYCERIN 0.4mg SUBLingual tab SL PRN ×2 (16:50→21:55)
[2023-07-09] MEDS ORDERED: PERFLUTREN PROTEIN-A MICROSPHR (Optison) 0.22 MG/ML 3ML VIAL IV ONE (16:50)
[2023-07-09] MEDS ORDERED: magnesium 2GM in 50ml NS 50 ML IV PRN (16:50)
[2023-07-09] MEDS ORDERED: morphine 2 MG/ML inj. syringe IV PRN ×3 (16:50→21:15)
[2023-07-09] MEDS ORDERED: ondansetron/PF 4mg/2ml inj IV PRN ×2 (16:50→21:15)
[2023-07-09] MEDS ORDERED: magnesium Cl slow-release 64mg tablet PO PRN (16:50)
[2023-07-09] MEDS ORDERED: normal saline 1000ml 1,000 ML IV SCH (16:50)
[2023-07-09] MEDS ORDERED: magnesium hydroxide 30ml (MOM) UD suspension PO PRN ×2 (16:50→21:15)
[2023-07-09] MEDS: heparin 25,000 UNIT/250ml bag 250 ML IV PRN ×2 (17:19→20:36)
[2023-07-09 17:56] LABS: MAGNESIUM 2.1 MG/DL (1.5-2.4); POTASSIUM 3.6 MMOL/L (3.5-5.1)
[2023-07-09 17:57] LABS: BASOPHILS % (AUTO) 0.2 % (0-1); EOSINOPHILS # (AUTO) 0.2 X10'3 (0-0.9); EOSINOPHILS % (AUTO) 3.1 % (0-6); HEMATOCRIT 35.2 % (42.0-52.0); HEMOGLOBIN 12.2 g/dl (14.0-17.9); LYMPHOCYTES # (AUTO) 1.2 X10'3 (1.1-4.8); LYMPHOCYTES % (AUTO) 16.1 % (21-51); MEAN CORPUSCULAR HGB CONC 34.7 g/dL (33.0-36.5); MEAN CORPUSCULAR VOLUME 86.7 FL (78-98); MONOCYTES # (AUTO) 0.7 X10'3 (0-0.9); MONOCYTES % (AUTO) 9.6 % (2-12); NEUTROPHILS # (AUTO) 5.3 X10'3 (1.8-7.7); PLATELET COUNT 183 X10'3 (140-440); RED BLOOD COUNT 4.06 X10'6 (4.70-6.10); RED CELL DISTRIBUTION WIDTH 13.3 % (11.5-14.5); WHITE BLOOD COUNT 7.5 X10'3 (4.5-11.0)
[2023-07-09] MEDS ORDERED: heparin 25,000 UNIT/250ml bag 250 ML IV PRN (18:05)
[2023-07-09] MEDS ORDERED: furosemide 10 MG/1 ML 10ml inj IV ONE (18:05)
[2023-07-09 18:08] LABS: INR 1.1 INR
[2023-07-09 18:09] LABS: PROTHROMBIN TIME 11.4 SECONDS (9.0-12.0)
[2023-07-09] MEDS ORDERED: nitroGLYCERIN-Tridil 50MG/D5W 250 ML IV SCH (18:10)
[2023-07-09 18:17] LABS: APTT 119 SECONDS (22-32)
[2023-07-09] MEDS ORDERED: docusate sod 100mg capsule PO SCH (20:00)
[2023-07-09] MEDS ORDERED: K and/or MAG REPLACEMENT MC SCH (20:00)
[2023-07-09] MEDS: heparin 10,000 units/1 ML INJ IV PRN (20:35)
[2023-07-09] MEDS ORDERED: temazepam 15mg capsule PO PRN (21:00)
[2023-07-09] MEDS ORDERED: bisacodyl 10mg suppository rectal RC PRN (21:15)
[2023-07-09] MEDS ORDERED: ondansetron 4mg rapidly disintigrating tab PO PRN (21:15)
[2023-07-09] MEDS ORDERED: diphenhydrAMINE 50 mg/ml inj IV PRN (21:15)
[2023-07-09] MEDS ORDERED: acetaminophen 650mg rectal suppository RC PRN (21:15)
[2023-07-09] MEDS ORDERED: diphenhydrAMINE 25mg capsule PO PRN (21:15)
[2023-07-09] MEDS: normal saline 1000ml 1,000 ML IV SCH (21:33)
[2023-07-09] MEDS ORDERED: losartan 50mg tablet PO ONE (22:20)
[2023-07-09] MEDS ORDERED: metoprolol tartrate 50mg tablet PO ONE (22:20)
[2023-07-09] MEDS: gabapentin 300mg capsule PO SCH (22:37)
[2023-07-09] MEDS: HYDROcodone/acetaminophen 5mg/325mg tablet PO PRN (22:38)
[2023-07-09] MEDS: temazepam 15mg capsule PO PRN (22:38)
[2023-07-09 23:00] VITALS: RESP 18; O2SAT 94
[2023-07-09 23:30] VITALS: BP 133/84
[2023-07-10] VITALS (7 sets, daily range): BP systolic 120–172; BP diastolic 56–108; PULSE 54–75; RESP 14–16; TEMP 97.3–98.2; O2SAT 94–100
[2023-07-10 02:46] LABS: PLATELET COUNT 188 X10'3 (140-440)
[2023-07-10 02:47] LABS: BASOPHILS % (AUTO) 0.6 % (0-1); EOSINOPHILS # (AUTO) 0.2 X10'3 (0-0.9); EOSINOPHILS % (AUTO) 3.5 % (0-6); HEMATOCRIT 37.9 % (42.0-52.0); LYMPHOCYTES # (AUTO) 1.5 X10'3 (1.1-4.8); LYMPHOCYTES % (AUTO) 20.4 % (21-51); MEAN CORPUSCULAR HEMOGLOBIN 29.7 PG (27.0-31.0); MEAN CORPUSCULAR HGB CONC 34.3 g/dL (33.0-36.5); MEAN CORPUSCULAR VOLUME 86.6 FL (78-98); MEAN PLATELET VOLUME 7.5 FL (7.4-10.4); MONOCYTES # (AUTO) 0.9 X10'3 (0-0.9); MONOCYTES % (AUTO) 12.1 % (2-12); NEUTROPHILS # (AUTO) 4.5 X10'3 (1.8-7.7); NEUTROPHILS % (AUTO) 63.4 % (42-75); RED BLOOD COUNT 4.38 X10'6 (4.70-6.10); RED CELL DISTRIBUTION WIDTH 13.2 % (11.5-14.5); WHITE BLOOD COUNT 7.1 X10'3 (4.5-11.0)
[2023-07-10 02:57] LABS: ALANINE AMINOTRANSFERASE 34 U/L (12-78); ALBUMIN 4.2 G/DL (3.4-5.0); ALBUMIN/GLOBULIN RATIO 1.2 (1.1-1.5); ALKALINE PHOSPHATASE 66 IU/L (46-116); ANION GAP 5 (8-16); ASPARTATE AMINO TRANSFERASE 26 U/L (10-37); BILIRUBIN,TOTAL 0.4 MG/DL (0.1-1.0); BLOOD UREA NITROGEN 11 MG/DL (7-18); BUN/CREATININE RATIO 13.6 (10.0-20.0); CALCIUM 9.3 MG/DL (8.5-10.1); CHLORIDE 97 MMOL/L (99-107); CREATININE 0.81 MG/DL (0.60-1.10); GLUCOSE 100 MG/DL (70-104); POTASSIUM 3.5 MMOL/L (3.5-5.1); SODIUM 133 MMOL/L (135-145); TOTAL CARBON DIOXIDE 30.9 MMOL/L (24-32); TOTAL PROTEIN 7.8 G/DL (6.4-8.2); eCRCL 88 ML/MIN; eGFR > 90 ML/MIN
[2023-07-10] MEDS: heparin 10,000 units/1 ML INJ IV PRN ×2 (03:31→16:29)
[2023-07-10] MEDS: normal saline 1000ml 1,000 ML IV SCH (04:56)
[2023-07-10] MEDS: HYDROcodone/acetaminophen 5mg/325mg tablet PO PRN (05:56)
[2023-07-10] MEDS ORDERED: metoprolol tartrate 50mg tablet PO SCH (08:00)
[2023-07-10] MEDS ORDERED: losartan 50mg tablet PO SCH (08:00)
[2023-07-10] MEDS ORDERED: aspirin 325mg tablet PO SCH (08:00)
[2023-07-10] MEDS ORDERED: GABA600T13 PO (08:01)
[2023-07-10] MEDS ORDERED: HYDR-3973 PO (08:01)
[2023-07-10] MEDS: carVEDilol 12.5mg tablet PO SCH ×2 (08:14→19:44)
[2023-07-10] MEDS: docusate sod 100mg capsule PO SCH ×2 (08:14→19:42)
[2023-07-10] MEDS: clopidogrel 75mg tablet PO SCH (08:15)
[2023-07-10] MEDS: isosorbide mononitrate 30mg tab.SR.24H PO SCH (08:16)
[2023-07-10] MEDS: EMPAGLIFLOZIN 10 MG TABLET PO SCH (08:17)
[2023-07-10] MEDS: pantoprazole 40mg Tablet.DR PO SCH (08:17)
[2023-07-10] MEDS: gabapentin 300mg capsule PO SCH ×2 (08:18→15:43)
[2023-07-10] MEDS: furosemide 40mg/4ml inj IV SCH (08:18)
[2023-07-10] MEDS: aspirin 81mg tab.chew PO SCH (08:18)
[2023-07-10] MEDS: HYDROcodone/acetaminophen 10/325mg tab PO PRN ×3 (10:02→19:13)
[2023-07-10] MEDS: sertraline 50mg tablet PO SCH (10:25)
[2023-07-10 10:35] LABS: APTT 58 SECONDS (22-32)
[2023-07-10] MEDS ORDERED: potassium CL 10mEq/100ml bag 100 ML IV PRN (11:15)
[2023-07-10] MEDS ORDERED: magnesium 4gm in 100ml NS 100 ML IV PRN (11:15)
[2023-07-10] MEDS ORDERED: potassium Cl 40MEQ/1/2NS 520ml 520 ML IV PRN (11:15)
[2023-07-10] MEDS ORDERED: potassium Cl 20 mEq SR tablet PO PRN (11:15)
[2023-07-10] MEDS ORDERED: magnesium 2GM in 50ml NS 50 ML IV PRN (11:15)
[2023-07-10] MEDS: LORazepam 0.5 MG tablet PO PRN ×2 (13:08→19:43)
[2023-07-10] MEDS: sacubitril/valsartan 24mg-26mg tablet PO SCH ×2 (13:25→19:42)
[2023-07-10] MEDS: spironolactone 25 MG tablet PO SCH (13:26)
[2023-07-10] MEDS: temazepam 15mg capsule PO PRN (23:07)
[2023-07-11] MEDS: gabapentin 300mg capsule PO SCH ×3 (01:01→16:11)
[2023-07-11] MEDS: temazepam 15mg capsule PO PRN (01:12)
[2023-07-11] MEDS: LORazepam 0.5 MG tablet PO PRN ×4 (01:20→16:10)
[2023-07-11 02:00] VITALS: BP 140/88; PULSE 82; RESP 18; TEMP 97; O2SAT 94
[2023-07-11 06:47] LABS: BASOPHILS % (AUTO) 0.6 % (0-1); EOSINOPHILS # (AUTO) 0.3 X10'3 (0-0.9); EOSINOPHILS % (AUTO) 4.2 % (0-6); HEMATOCRIT 42.7 % (42.0-52.0); HEMOGLOBIN 14.5 g/dl (14.0-17.9); LYMPHOCYTES # (AUTO) 1.2 X10'3 (1.1-4.8); LYMPHOCYTES % (AUTO) 16.4 % (21-51); MEAN CORPUSCULAR HEMOGLOBIN 29.7 PG (27.0-31.0); MEAN CORPUSCULAR VOLUME 87.4 FL (78-98); MEAN PLATELET VOLUME 8.4 FL (7.4-10.4); MONOCYTES # (AUTO) 0.8 X10'3 (0-0.9); MONOCYTES % (AUTO) 10.2 % (2-12); NEUTROPHILS # (AUTO) 5.1 X10'3 (1.8-7.7); NEUTROPHILS % (AUTO) 68.6 % (42-75); PLATELET COUNT 193 X10'3 (140-440); RED BLOOD COUNT 4.88 X10'6 (4.70-6.10); RED CELL DISTRIBUTION WIDTH 13.2 % (11.5-14.5); WHITE BLOOD COUNT 7.4 X10'3 (4.5-11.0)
[2023-07-11 07:09] LABS: APTT 43 SECONDS (22-32)
[2023-07-11 07:18] VITALS: BP 152/84; PULSE 84; RESP 16; TEMP 97.8; O2SAT 97
[2023-07-11 07:21] LABS: ALANINE AMINOTRANSFERASE 33 U/L (12-78); ALBUMIN/GLOBULIN RATIO 0.9 (1.1-1.5); ALKALINE PHOSPHATASE 69 IU/L (46-116); ANION GAP 10 (8-16); ASPARTATE AMINO TRANSFERASE 27 U/L (10-37); BILIRUBIN,TOTAL 0.5 MG/DL (0.1-1.0); BLOOD UREA NITROGEN 11 MG/DL (7-18); BUN/CREATININE RATIO 13.4 (10.0-20.0); CALCIUM 9.7 MG/DL (8.5-10.1); CHLORIDE 96 MMOL/L (99-107); CREATININE 0.82 MG/DL (0.60-1.10); GLUCOSE 109 MG/DL (70-104); POTASSIUM 3.4 MMOL/L (3.5-5.1); PRO BRAIN NATRIURETIC PEPTIDE 966 PG/ML (0-125); SODIUM 133 MMOL/L (135-145); TOTAL CARBON DIOXIDE 26.9 MMOL/L (24-32); TOTAL PROTEIN 8.3 G/DL (6.4-8.2); eCRCL 87 ML/MIN; eGFR > 90 ML/MIN
[2023-07-11 08:00] VITALS: RESP 16
[2023-07-11] MEDS: sertraline 50mg tablet PO SCH (08:10)
[2023-07-11] MEDS: docusate sod 100mg capsule PO SCH (08:11)
[2023-07-11] MEDS: pantoprazole 40mg Tablet.DR PO SCH (08:11)
[2023-07-11] MEDS: clopidogrel 75mg tablet PO SCH (08:11)
[2023-07-11] MEDS: aspirin 81mg tab.chew PO SCH (08:11)
[2023-07-11] MEDS: carVEDilol 12.5mg tablet PO SCH (08:11)
[2023-07-11] MEDS: sacubitril/valsartan 24mg-26mg tablet PO SCH (08:12)
[2023-07-11] MEDS: EMPAGLIFLOZIN 10 MG TABLET PO SCH (08:12)
[2023-07-11] MEDS: isosorbide mononitrate 30mg tab.SR.24H PO SCH (08:12)
[2023-07-11] MEDS: spironolactone 25 MG tablet PO SCH (08:13)
[2023-07-11] MEDS: furosemide 40mg/4ml inj IV SCH (08:14)
[2023-07-11] MEDS: heparin 10,000 units/1 ML INJ IV PRN (08:25)
[2023-07-11] MEDS: HYDROcodone/acetaminophen 10/325mg tab PO PRN ×2 (09:33→14:18)
[2023-07-11] MEDS ORDERED: LORA-268 PO (11:06)
[2023-07-11] MEDS ORDERED: SACU1TAB PO (11:06)
[2023-07-11] MEDS ORDERED: SERT-433 PO (11:06)
[2023-07-11] MEDS ORDERED: EMPA10TA PO (11:06)
[2023-07-11] MEDS ORDERED: ASPI81TA53 PO (11:06)
[2023-07-11] MEDS ORDERED: HYDR-3972 PO (11:06)
[2023-07-11] MEDS ORDERED: SPIR25TA PO (11:06)
[2023-07-11] MEDS ORDERED: CARV-50 PO (11:06)
[2023-07-11 12:00] VITALS: BP 100/60; PULSE 84; RESP 12; TEMP 97.6; O2SAT 94
[2023-07-11 15:42] VITALS: RESP 16
[2023-07-11] MEDS ORDERED: enoxaparin 40mg/0.4ml syringe SUBCUT SCH (20:00)
== END 2023-07-11 16:33 | disposition home or self-care (01) | DRG 280 ==
LOC: ER 14:27 → UNDOADMIN 16:46 → ED HOLD 16:46 → PCU 3S 22:43 → ED HOLD 22:43
PROVIDERS: ADMIT Family Medicine; ATTEND Family Medicine
DX: I13.0 Hypertensive heart and chronic kidney disease with heart failure and stage 1 through stage 4 chronic kidney disease, or unspecified chronic kidney disease (principal); I21.A1 Myocardial infarction type 2; I50.23 Acute on chronic systolic (congestive) heart failure; N17.9 Acute kidney failure, unspecified; E87.1 Hypo-osmolality and hyponatremia; I42.0 Dilated cardiomyopathy; I16.0 Hypertensive urgency; I25.119 Atherosclerotic heart disease of native coronary artery with unspecified angina pectoris; N18.9 Chronic kidney disease, unspecified; G89.4 Chronic pain syndrome; I27.20 Pulmonary hypertension, unspecified; F41.1 Generalized anxiety disorder; I25.5 Ischemic cardiomyopathy; Z20.822 Contact with and (suspected) exposure to COVID-19; E78.00 Pure hypercholesterolemia, unspecified; Z79.899 Other long term (current) drug therapy; Z95.5 Presence of coronary angioplasty implant and graft; I25.2 Old myocardial infarction; Z95.3 Presence of xenogenic heart valve; Z95.1 Presence of aortocoronary bypass graft; Z88.8 Allergy status to other drugs, medicaments and biological substances; Z79.82 Long term (current) use of aspirin; Z79.02 Long term (current) use of antithrombotics/antiplatelets; Z91.199 Patient's noncompliance with other medical treatment and regimen due to unspecified reason; I35.0 Nonrheumatic aortic (valve) stenosis
CPT/HCPCS: 36415; 70450; 71045; 80053; 83735; 83880; 84132; 84484; 85025; 85610; 85730; 87081; 87811; 93005; 93306; 99285; G0378; J1644; J1940; J7030

== ENCOUNTER 2023-07-11 17:30 | Emergency (ER) | payer MEDICARE ==
[~2023-07-11] VITALS: Ht 182.9 cm; Wt 95.1 kg
[~2023-07-11 17:30] MED LIST changes: +ASPI81TA53 PO; +CARV-50 PO; -CLOP75TA15 PO; +EMPA10TA PO; +HYDR-3972 PO; +HYDR-3973 PO; -LOP12.5T PO; +LORA-268 PO; +SACU1TAB PO; +SERT-433 PO; +SPIR25TA PO
[2023-07-11] MEDS ORDERED: HYDROmorphone 1 mg/ml syringe IV ONE (21:20)
[2023-07-11] MEDS ORDERED: aspirin 81mg tab.chew PO ONE (21:20)
[2023-07-11 22:12] LABS: HEMOGLOBIN 13.4 g/dl (14.0-17.9); MEAN CORPUSCULAR HEMOGLOBIN 29.5 PG (27.0-31.0); MEAN PLATELET VOLUME 7.7 FL (7.4-10.4); RED BLOOD COUNT 4.56 X10'6 (4.70-6.10); WHITE BLOOD COUNT 7.4 X10'3 (4.5-11.0)
[2023-07-11 22:14] LABS: BASOPHILS % (AUTO) 0.6 % (0-1); EOSINOPHILS # (AUTO) 0.2 X10'3 (0-0.9); EOSINOPHILS % (AUTO) 3.3 % (0-6); HEMATOCRIT 39.9 % (42.0-52.0); LYMPHOCYTES # (AUTO) 1.3 X10'3 (1.1-4.8); LYMPHOCYTES % (AUTO) 17.3 % (21-51); MEAN CORPUSCULAR HGB CONC 33.7 g/dL (33.0-36.5); MEAN CORPUSCULAR VOLUME 87.6 FL (78-98); MONOCYTES # (AUTO) 0.9 X10'3 (0-0.9); MONOCYTES % (AUTO) 12.3 % (2-12); NEUTROPHILS # (AUTO) 4.9 X10'3 (1.8-7.7); NEUTROPHILS % (AUTO) 66.5 % (42-75); PLATELET COUNT 202 X10'3 (140-440); RED CELL DISTRIBUTION WIDTH 13.1 % (11.5-14.5)
[2023-07-11 22:25] LABS: ALANINE AMINOTRANSFERASE 34 U/L (12-78); ALBUMIN 3.8 G/DL (3.4-5.0); ALKALINE PHOSPHATASE 60 IU/L (46-116); ANION GAP 10 (8-16); ASPARTATE AMINO TRANSFERASE 23 U/L (10-37); BILIRUBIN,TOTAL 0.6 MG/DL (0.1-1.0); BLOOD UREA NITROGEN 14 MG/DL (7-18); BUN/CREATININE RATIO 15.2 (10.0-20.0); CALCIUM 9.5 MG/DL (8.5-10.1); CHLORIDE 95 MMOL/L (99-107); CREATININE 0.92 MG/DL (0.60-1.10); GLUCOSE 120 MG/DL (70-104); MAGNESIUM 2.3 MG/DL (1.5-2.4); POTASSIUM 3.4 MMOL/L (3.5-5.1); PRO BRAIN NATRIURETIC PEPTIDE 839 PG/ML (0-125); SODIUM 130 MMOL/L (135-145); TOTAL CARBON DIOXIDE 24.7 MMOL/L (24-32); TOTAL PROTEIN 7.5 G/DL (6.4-8.2); eCRCL 77 ML/MIN; eGFR 80 ML/MIN
[2023-07-12] MEDS ORDERED: losartan 50mg tablet PO STA (04:33)
[2023-07-12] MEDS ORDERED: metoprolol tartrate 50mg tablet PO ONE (04:35)
[2023-07-12] MEDS ORDERED: metoprolol tartrate 25mg tablet PO ONE (04:45)
[2023-07-12] MEDS ORDERED: morphine 4 MG/ML inj SYRINge IV ONE (05:10)
[2023-07-12 06:35] VITALS: TEMP 98.7
[2023-07-12 06:39] VITALS: BP 143/79; PULSE 65; RESP 17; O2SAT 98
== END 2023-07-12 06:44 | disposition short-term general hospital (02) ==
LOC: ER 17:31
DX: I25.10 Atherosclerotic heart disease of native coronary artery without angina pectoris (principal); E78.00 Pure hypercholesterolemia, unspecified; I11.0 Hypertensive heart disease with heart failure; I50.9 Heart failure, unspecified; G89.29 Other chronic pain; I50.22 Chronic systolic (congestive) heart failure; Z95.5 Presence of coronary angioplasty implant and graft; Z79.899 Other long term (current) drug therapy; Z88.8 Allergy status to other drugs, medicaments and biological substances; Z79.82 Long term (current) use of aspirin
CPT/HCPCS: 36415; 71045; 80053; 80346; 83735; 83880; 84484; 85025; 93005; 96374; 96375; 99285; J1170; J2270

== ENCOUNTER 2023-11-10 21:49 | Emergency (ER) | payer MEDICARE ==
[~2023-11-10] VITALS: Ht 182.9 cm; Wt 90.9 kg
[~2023-11-10 21:49] MED LIST changes: -ASPI-1264 PO; -HYDR-3972 PO; -HYDR-3973 PO; -LORA-268 PO; -LOSA-415 PO; -METO25TA6 PO
[2023-11-10] MEDS ORDERED: aspirin 81mg tab.chew PO ONE (22:00)
[2023-11-10 22:14] LABS: BASOPHILS % (AUTO) 0.7 % (0-1); EOSINOPHILS # (AUTO) 0.2 X10'3 (0-0.9); EOSINOPHILS % (AUTO) 3.3 % (0-6); HEMATOCRIT 30.6 % (42.0-52.0); HEMOGLOBIN 10.2 g/dl (14.0-17.9); LYMPHOCYTES # (AUTO) 0.6 X10'3 (1.1-4.8); LYMPHOCYTES % (AUTO) 9.4 % (21-51); MEAN CORPUSCULAR HEMOGLOBIN 28.5 PG (27.0-31.0); MEAN CORPUSCULAR HGB CONC 33.3 g/dL (33.0-36.5); MEAN CORPUSCULAR VOLUME 85.7 FL (78-98); MEAN PLATELET VOLUME 6.8 FL (7.4-10.4); MONOCYTES # (AUTO) 0.4 X10'3 (0-0.9); MONOCYTES % (AUTO) 7.4 % (2-12); NEUTROPHILS # (AUTO) 4.7 X10'3 (1.8-7.7); NEUTROPHILS % (AUTO) 79.2 % (42-75); PLATELET COUNT 189 X10'3 (140-440); RED BLOOD COUNT 3.58 X10'6 (4.70-6.10); RED CELL DISTRIBUTION WIDTH 13.9 % (11.5-14.5); WHITE BLOOD COUNT 5.9 X10'3 (4.5-11.0)
[2023-11-10 22:31] LABS: ALBUMIN 3.7 G/DL (3.4-5.0); ANION GAP 10 (8-16); BLOOD UREA NITROGEN 9 MG/DL (7-18); BUN/CREATININE RATIO 10.8 (10.0-20.0); CALCIUM 9.5 MG/DL (8.5-10.1); CHLORIDE 97 MMOL/L (99-107); CREATININE 0.83 MG/DL (0.60-1.10); GLUCOSE 109 MG/DL (70-104); MAGNESIUM 2.1 MG/DL (1.5-2.4); PRO BRAIN NATRIURETIC PEPTIDE 583 PG/ML (0-125); SODIUM 134 MMOL/L (135-145); TOTAL CARBON DIOXIDE 26.9 MMOL/L (24-32); eCRCL 86 ML/MIN; eGFR > 90 ML/MIN
[2023-11-10] MEDS: hydrOXYzine 25 MG tablet PO ONE (23:04)
[2023-11-11 00:04] VITALS: BP 155/88; PULSE 68; RESP 16; TEMP 98; O2SAT 97
== END 2023-11-11 00:09 | disposition home or self-care (01) ==
LOC: ER 21:50
DX: I11.0 Hypertensive heart disease with heart failure (principal); I50.9 Heart failure, unspecified; I25.10 Atherosclerotic heart disease of native coronary artery without angina pectoris; E78.00 Pure hypercholesterolemia, unspecified; I25.2 Old myocardial infarction; G89.29 Other chronic pain; M54.9 Dorsalgia, unspecified; Z95.1 Presence of aortocoronary bypass graft; Z88.8 Allergy status to other drugs, medicaments and biological substances
CPT/HCPCS: 36415; 71045; 80048; 83735; 83880; 84484; 85025; 93005; 99285; Q0177

== ENCOUNTER 2024-01-07 09:53 | Emergency (ER) | payer MEDICARE ==
[~2024-01-07] VITALS: Ht 182.9 cm; Wt 95.5 kg
[2024-01-07 10:16] LABS: EOSINOPHILS # (AUTO) 0.3 X10'3 (0-0.9); EOSINOPHILS % (AUTO) 5.7 % (0-6); HEMATOCRIT 34.9 % (42.0-52.0); HEMOGLOBIN 11.6 g/dl (14.0-17.9); LYMPHOCYTES # (AUTO) 0.7 X10'3 (1.1-4.8); LYMPHOCYTES % (AUTO) 15.7 % (21-51); MEAN CORPUSCULAR HEMOGLOBIN 28.1 PG (27.0-31.0); MEAN CORPUSCULAR HGB CONC 33.1 g/dL (33.0-36.5); MEAN CORPUSCULAR VOLUME 84.8 FL (78-98); MEAN PLATELET VOLUME 7.3 FL (7.4-10.4); MONOCYTES # (AUTO) 0.7 X10'3 (0-0.9); MONOCYTES % (AUTO) 14.4 % (2-12); NEUTROPHILS # (AUTO) 2.9 X10'3 (1.8-7.7); NEUTROPHILS % (AUTO) 63.2 % (42-75); PLATELET COUNT 148 X10'3 (140-440); RED BLOOD COUNT 4.12 X10'6 (4.70-6.10); RED CELL DISTRIBUTION WIDTH 13.7 % (11.5-14.5); WHITE BLOOD COUNT 4.6 X10'3 (4.5-11.0)
[2024-01-07 10:31] LABS: ALANINE AMINOTRANSFERASE 33 U/L (12-78); ALBUMIN/GLOBULIN RATIO 1.1 (1.1-1.5); ALKALINE PHOSPHATASE 80 IU/L (46-116); ANION GAP 11 (8-16); ASPARTATE AMINO TRANSFERASE 14 U/L (10-37); BILIRUBIN,TOTAL 0.4 MG/DL (0.1-1.0); BLOOD UREA NITROGEN 15 MG/DL (7-18); BUN/CREATININE RATIO 18.1 (10.0-20.0); CALCIUM 8.9 MG/DL (8.5-10.1); CHLORIDE 95 MMOL/L (99-107); CREATININE 0.83 MG/DL (0.60-1.10); GLUCOSE 111 MG/DL (70-104); SODIUM 133 MMOL/L (135-145); TOTAL PROTEIN 7.6 G/DL (6.4-8.2); eCRCL 84 ML/MIN; eGFR 90 ML/MIN
[2024-01-07 10:40] LABS: PRO BRAIN NATRIURETIC PEPTIDE 377 PG/ML (0-450)
[2024-01-07 11:26] VITALS: BP 122/69; PULSE 57; RESP 14; TEMP 98.1; O2SAT 95
== END 2024-01-07 11:20 | disposition home or self-care (01) ==
LOC: ER 09:53
DX: I11.0 Hypertensive heart disease with heart failure (principal); I50.9 Heart failure, unspecified; I25.10 Atherosclerotic heart disease of native coronary artery without angina pectoris; I25.2 Old myocardial infarction; E78.00 Pure hypercholesterolemia, unspecified; G89.29 Other chronic pain; M54.9 Dorsalgia, unspecified; Z95.1 Presence of aortocoronary bypass graft; Z88.8 Allergy status to other drugs, medicaments and biological substances; Z79.899 Other long term (current) drug therapy; Z79.82 Long term (current) use of aspirin
CPT/HCPCS: 36415; 80053; 83880; 84484; 85025; 93005; 99284

== ENCOUNTER 2024-04-15 21:47 | Emergency (ER) | payer MEDICARE ==
[~2024-04-15] VITALS: Ht 182.9 cm; Wt 100.0 kg
[~2024-04-15 21:47] MED LIST changes: -EMPA10TA PO; -ISOS60TA71 PO; -SACU1TAB PO
[2024-04-15 22:22] LABS: BASOPHILS # (AUTO) 0.1 X10'3 (0-0.2); BASOPHILS % (AUTO) 1.6 % (0-1); EOSINOPHILS # (AUTO) 0.2 X10'3 (0-0.9); EOSINOPHILS % (AUTO) 3.5 % (0-6); HEMATOCRIT 38.8 % (42.0-52.0); HEMOGLOBIN 12.8 g/dl (14.0-17.9); LYMPHOCYTES # (AUTO) 0.4 X10'3 (1.1-4.8); LYMPHOCYTES % (AUTO) 5.6 % (21-51); MEAN CORPUSCULAR HEMOGLOBIN 28.2 PG (27.0-31.0); MEAN CORPUSCULAR HGB CONC 33.1 g/dL (33.0-36.5); MEAN CORPUSCULAR VOLUME 85.2 FL (78-98); MONOCYTES # (AUTO) 0.4 X10'3 (0-0.9); MONOCYTES % (AUTO) 6.1 % (2-12); NEUTROPHILS # (AUTO) 5.9 X10'3 (1.8-7.7); NEUTROPHILS % (AUTO) 83.2 % (42-75); PLATELET COUNT 226 X10'3 (140-440); RED BLOOD COUNT 4.56 X10'6 (4.70-6.10); RED CELL DISTRIBUTION WIDTH 14.1 % (11.5-14.5); WHITE BLOOD COUNT 7.1 X10'3 (4.5-11.0)
[2024-04-15 23:15] LABS: ALANINE AMINOTRANSFERASE 28 U/L (12-78); ALBUMIN 3.9 G/DL (3.4-5.0); ALKALINE PHOSPHATASE 88 IU/L (46-116); ANION GAP 9 (8-16); ASPARTATE AMINO TRANSFERASE 17 U/L (10-37); BILIRUBIN,TOTAL 0.3 MG/DL (0.1-1.0); BLOOD UREA NITROGEN 11 MG/DL (7-18); BUN/CREATININE RATIO 11.6 (10.0-20.0); CALCIUM 9.3 MG/DL (8.5-10.1); CHLORIDE 91 MMOL/L (99-107); CREATININE 0.95 MG/DL (0.60-1.10); GLUCOSE 157 MG/DL (70-104); SODIUM 129 MMOL/L (135-145); TOTAL PROTEIN 7.7 G/DL (6.4-8.2); eCRCL 74 ML/MIN; eGFR 77 ML/MIN
[2024-04-15 23:23] LABS: PRO BRAIN NATRIURETIC PEPTIDE 353 PG/ML (0-450)
[2024-04-16] MEDS: clopidogrel 75mg tablet PO ONE (00:36)
[2024-04-16] MEDS ORDERED: furosemide 20MG tablet PO ONE (01:25)
[2024-04-16] MEDS ORDERED: FURO-149 PO (01:27)
[2024-04-16] MEDS ORDERED: CLOP-32 PO (01:27)
[2024-04-16] MEDS ORDERED: POTA-366 PO (01:27)
[2024-04-16 01:31] VITALS: BP 151/95; PULSE 78; RESP 16; TEMP 98.5; O2SAT 100
== END 2024-04-16 02:03 | disposition left against medical advice (07) ==
LOC: ER 21:48
DX: I48.91 Unspecified atrial fibrillation (principal); I24.9 Acute ischemic heart disease, unspecified; I25.10 Atherosclerotic heart disease of native coronary artery without angina pectoris; I11.0 Hypertensive heart disease with heart failure; I50.9 Heart failure, unspecified; E78.00 Pure hypercholesterolemia, unspecified; Z88.8 Allergy status to other drugs, medicaments and biological substances; Z79.82 Long term (current) use of aspirin; Z79.899 Other long term (current) drug therapy
CPT/HCPCS: 36415; 71045; 80053; 83880; 84484; 85025; 93005; 99291

== ENCOUNTER 2024-05-23 08:41 | Day surgery (SDC) | payer MEDICARE ==
[2024-05-16 14:18] LABS: BASOPHILS % (AUTO) 0.7 % (0-1); EOSINOPHILS # (AUTO) 0.3 X10'3 (0-0.9); EOSINOPHILS % (AUTO) 5.9 % (0-6); HEMATOCRIT 35.6 % (42.0-52.0); HEMOGLOBIN 11.8 g/dl (14.0-17.9); LYMPHOCYTES # (AUTO) 1.1 X10'3 (1.1-4.8); LYMPHOCYTES % (AUTO) 18.9 % (21-51); MEAN CORPUSCULAR HGB CONC 33.1 g/dL (33.0-36.5); MEAN CORPUSCULAR VOLUME 84.7 FL (78-98); MONOCYTES # (AUTO) 0.6 X10'3 (0-0.9); MONOCYTES % (AUTO) 10.3 % (2-12); NEUTROPHILS # (AUTO) 3.8 X10'3 (1.8-7.7); NEUTROPHILS % (AUTO) 64.2 % (42-75); PLATELET COUNT 192 X10'3 (140-440); RED BLOOD COUNT 4.21 X10'6 (4.70-6.10); RED CELL DISTRIBUTION WIDTH 14.2 % (11.5-14.5); WHITE BLOOD COUNT 5.8 X10'3 (4.5-11.0)
[2024-05-16 14:37] LABS: ALANINE AMINOTRANSFERASE 26 U/L (12-78); ALBUMIN/GLOBULIN RATIO 1.1 (1.1-1.5); ALKALINE PHOSPHATASE 85 IU/L (46-116); ANION GAP 6 (8-16); ASPARTATE AMINO TRANSFERASE 13 U/L (10-37); BILIRUBIN,TOTAL 0.3 MG/DL (0.1-1.0); BLOOD UREA NITROGEN 12 MG/DL (7-18); CALCIUM 9.2 MG/DL (8.5-10.1); CHLORIDE 96 MMOL/L (99-107); GLUCOSE 106 MG/DL (70-104); POTASSIUM 4.4 MMOL/L (3.5-5.1); SODIUM 131 MMOL/L (135-145); TOTAL CARBON DIOXIDE 28.6 MMOL/L (24-32); TOTAL PROTEIN 7.8 G/DL (6.4-8.2); eGFR > 90 ML/MIN
[~2024-05-23] VITALS: Ht 182.9 cm; Wt 99.5 kg
[2024-05-23] VITALS (8 sets, daily range): BP systolic 101–139; BP diastolic 61–77; PULSE 58–67; RESP 12–16; TEMP 98.6; O2SAT 92–97
[2024-05-23] MEDS: DOCUMENT DATE & TIME OF BETA-BLOCKER PO ONE (02:30)
[~2024-05-23 08:41] MED LIST changes: +ASPI-1264 PO; +ASPI-1265 PO; -ASPI81TA53 PO; -CARV-50 PO; +COLC0.6C3 PO; +EZET10TA6 PO; +FLO0.4C PO; +GABA-1405 PO; -GABA600T13 PO; +LOSA-415 PO; +METO-395 PO; +PANT40SU2 PO; -SERT-433 PO; +SERT50TA PO; -SPIR25TA PO; +SPIR25TA5 PO; +TRAZ-251 PO
[2024-05-23] MEDS ORDERED: BUPIVAcaine/PF 2.5mg/ml (0.25%) 10ml vial ONE (09:51)
[2024-05-23] MEDS ORDERED: LIDOcaine 2% (20mg/ml) 5ml vial ONE (09:52)
[2024-05-23] MEDS: famotidine 20mg tablet PO ONE (10:12)
[2024-05-23] MEDS: ringers solution, lacted 1,000 ML IV SCH (10:14)
[2024-05-23] MEDS: ceFAZolin 2gm in dextrose, iso 50 ML IV ONE (10:15)
[2024-05-23] MEDS ORDERED: meperidine/PF 25mg/ml syringe IV PRN ×3 (10:25)
[2024-05-23] MEDS ORDERED: ringers solution, lacted 1,000 ML IV SCH (10:25)
[2024-05-23] MEDS ORDERED: ondansetron/PF 4mg/2ml inj IV PRN (10:25)
[2024-05-23] MEDS ORDERED: morphine 2 MG/ML inj. syringe IV PRN (10:25)
[2024-05-23] MEDS ORDERED: morphine 4 MG/ML inj SYRINge IV PRN (10:25)
[2024-05-23] MEDS ORDERED: proCHLORperazine 10 MG/2 ml inj IV PRN (10:25)
[2024-05-23] MEDS ORDERED: fentaNYL/PF 50MCG/1 ML 2ML syringe ONE (10:52)
[2024-05-23] MEDS ORDERED: midazolam 1 mg/ML 2ml injection ONE (10:53)
[2024-05-23] MEDS ORDERED: propofol inj 20 ML IV ONE (10:56)
[2024-05-23] MEDS: oxyCODONE/APAP 5-325mg tablet PO ONE (12:05)
== END 2024-05-23 12:16 | disposition home or self-care (01) ==
LOC: PAS 08:41
PROVIDERS: ATTEND Orthopaedic Surgery Hand Surgery
DX: G56.01 Carpal tunnel syndrome, right upper limb (principal); I10 Essential (primary) hypertension; I25.119 Atherosclerotic heart disease of native coronary artery with unspecified angina pectoris; E78.5 Hyperlipidemia, unspecified; Z87.891 Personal history of nicotine dependence; Z79.02 Long term (current) use of antithrombotics/antiplatelets; Z79.899 Other long term (current) drug therapy; Z95.1 Presence of aortocoronary bypass graft; Z98.890 Other specified postprocedural states
CPT/HCPCS: 36415; 64721; 80053; 82948; 85025; A4215; A6449; J0690; J2003; J2250; J2704; J3010; J3490; J7030; J7120; Z7506; Z7512; Z7610